=== PATIENT | male | born 1965 | race Caucasian/White ===

== ENCOUNTER 2017-01-13 12:46 | Outpatient (CLI) | payer MEDICAID, OTHER | END 2017-01-13 23:59 | DX: E78.5 Hyperlipidemia, unspecified (principal); Z12.5 Encounter for screening for malignant neoplasm of prostate ==

== ENCOUNTER 2017-08-11 08:42 | Day surgery (SDC) | payer OTHER ==
[2017-08-11] MEDS ORDERED: LACTATED RINGERS 1,000 ML IV ONE (09:30)
[2017-08-11] MEDS ORDERED: MIDAZOLAM 2 MG/2 ML VIAL IVP ONE (10:55)
[2017-08-11] MEDS ORDERED: fentaNYL 100 MCG/2 ML VIAL IVP ONE (10:55)
[2017-08-11 12:01] VITALS: BP 132/77
== END 2017-08-11 08:43 | disposition home or self-care (01) ==
LOC: SDS 08:42
PROVIDERS: ATTEND Surgery
PROC: 0DBE8ZX Excision of Large Intestine, Via Natural or Artificial Opening Endoscopic, Diagnostic (ICD-10-PCS; principal; 2017-08-11 10:00)
DX: Z12.11 Encounter for screening for malignant neoplasm of colon (principal); D12.0 Benign neoplasm of cecum; D12.3 Benign neoplasm of transverse colon; I10 Essential (primary) hypertension; J45.909 Unspecified asthma, uncomplicated
CPT/HCPCS: 45380; J7120; 88305

== ENCOUNTER 2018-08-03 09:10 | Outpatient (CLI) | payer OTHER ==
[2018-08-03 13:13] LABS: BASOPHILS # (AUTO) 0.1 10^3/uL (0.0-0.1); BASOPHILS % (AUTO) 0.9 %; EOSINOPHILS # (AUTO) 0.1 10^3/uL (0.0-0.7); EOSINOPHILS % (AUTO) 1.9 %; LYMPHOCYTES # (AUTO) 1.1 10^3/uL (1.5-3.5); LYMPHOCYTES % (AUTO) 17.4 %; MEAN CORPUSCULAR HEMOGLOBIN 29.9 pg (27.0-31.0); MEAN CORPUSCULAR VOLUME 85.4 fL (80.0-94.0); MONOCYTES # (AUTO) 0.8 10^3/uL (0.0-1.0); MONOCYTES % (AUTO) 12.5 %; NEUTROPHILS # (AUTO) 4.3 10^3/uL (1.5-6.6); NEUTROPHILS % (AUTO) 67.3 %; PLT - PLATELET COUNT 215 10^3/uL (130-450); RED BLOOD COUNT 4.69 10^6/uL (4.70-6.10); RED CELL DISTRIBUTION WIDTH 13.9 % (12.0-15.0); WHITE BLOOD COUNT 6.4 x10^3/uL (4.8-10.8)
[2018-08-03 13:40] LABS: ALBUMIN 4.3 g/dL (3.2-5.5); ALBUMIN/GLOBULIN RATIO 1.5 (1.0-2.2); ALKALINE PHOSPHATASE 67 IU/L (42-121); ALT ALANINE AMINOTRANSFERASE 41 IU/L (10-60); AST ASPARTATE AMINOTRANSFERASE 25 IU/L (10-42); BILIRUBIN,TOTAL 0.9 mg/dL (0.2-1.0); BUN - BLOOD UREA NITROGEN 10 mg/dL (6-20); CALCIUM 9.5 mg/dL (8.5-10.3); CARBON DIOXIDE - CO2 26 mmol/L (21-32); CHLORIDE 104 mmol/L (101-111); CHOL/HDL RATIO 4.3 (<5.0); CHOLESTEROL 160 mg/dL; CREATININE 0.9 mg/dL (0.6-1.2); GFR - MDRD 88 (>89); GLUCOSE 104 mg/dL (70-100); HDL CHOLESTEROL 37 mg/dL; LDL CHOLESTEROL,CALCULATED 100 mg/dL; LDL/HDL RATIO 2.7 (<3.6); SODIUM 136 mmol/L (135-145); TOTAL PROTEIN 7.1 g/dL (6.7-8.2); VLDL CHOLESTEROL 23 mg/dL
== END 2018-08-03 23:59 ==
LOC: LAB.WCP 09:10
PROVIDERS: ATTEND Family Medicine
DX: N20.0 Calculus of kidney (principal); E78.5 Hyperlipidemia, unspecified; Z12.5 Encounter for screening for malignant neoplasm of prostate
CPT/HCPCS: 36415; 80053; 80061; 83721; 84153; 85025

== ENCOUNTER 2020-03-05 08:00 | Outpatient (CLI) | payer OTHER ==
[2020-03-05 12:03] LABS: BASOPHILS # (AUTO) 0.1 10^3/uL (0.0-0.1); BASOPHILS % (AUTO) 0.8 %; EOSINOPHILS # (AUTO) 0.2 10^3/uL (0.0-0.7); EOSINOPHILS % (AUTO) 2.5 %; LYMPHOCYTES # (AUTO) 1.1 10^3/uL (1.5-3.5); MEAN CORPUSCULAR HEMOGLOBIN 30.6 pg (27.0-31.0); MEAN CORPUSCULAR HGB CONC 33.8 g/dL (32.0-36.0); MEAN CORPUSCULAR VOLUME 90.4 fL (80.0-94.0); MEAN PLATELET VOLUME 12.2 fL (7.4-11.4); MONOCYTES # (AUTO) 0.7 10^3/uL (0.0-1.0); MONOCYTES % (AUTO) 11.9 %; NEUTROPHILS % (AUTO) 66.5 %; PLT - PLATELET COUNT 202 10^3/uL (130-450); RED BLOOD COUNT 4.58 10^6/uL (4.70-6.10); RED CELL DISTRIBUTION WIDTH 12.9 % (12.0-15.0)
[2020-03-05 12:34] LABS: ALBUMIN 4.2 g/dL (3.2-5.5); ALBUMIN/GLOBULIN RATIO 1.4 (1.0-2.2); ALKALINE PHOSPHATASE 59 IU/L (42-121); ALT ALANINE AMINOTRANSFERASE 37 IU/L (10-60); AST ASPARTATE AMINOTRANSFERASE 25 IU/L (10-42); BILIRUBIN,TOTAL 0.6 mg/dL (0.2-1.0); BUN - BLOOD UREA NITROGEN 13 mg/dL (6-20); CALCIUM 9.3 mg/dL (8.5-10.3); CARBON DIOXIDE - CO2 28 mmol/L (21-32); CHLORIDE 103 mmol/L (101-111); CHOL/HDL RATIO 4.7 (<5.0); CHOLESTEROL 205 mg/dL; CREATININE 0.9 mg/dL (0.6-1.2); GLUCOSE 99 mg/dL (70-100); HDL CHOLESTEROL 44 mg/dL; LDL CHOLESTEROL,CALCULATED 144 mg/dL; LDL/HDL RATIO 3.3 (<3.6); SODIUM 139 mmol/L (135-145); TOTAL PROTEIN 7.2 g/dL (6.7-8.2); VLDL CHOLESTEROL 17 mg/dL
== END 2020-03-05 23:59 | disposition home or self-care (01) ==
LOC: LAB.WCP 08:00
PROVIDERS: ATTEND Family Medicine
DX: I10 Essential (primary) hypertension (principal); E78.5 Hyperlipidemia, unspecified; Z12.5 Encounter for screening for malignant neoplasm of prostate
CPT/HCPCS: 36415; 80053; 80061; 83721; 84153; 84443; 85025

== ENCOUNTER 2020-06-04 07:21 | Outpatient (CLI) | payer OTHER ==
--- NOTE | 2020-06-04 16:24 | XRAY Report ---
PROCEDURE: Shoulder 3 View RT INDICATIONS: RIGHT SHOULDER PAIN TECHNIQUE: 3 views of the shoulder were acquired. COMPARISON: None. FINDINGS: Bones: No fractures or dislocations. No suspicious bony lesions. Visualized ribs appear intact. Mi ld high riding appearance of the humeral head. Moderate to severe acromioclavicular degenerative narr owing. Soft tissues: No suspicious soft tissue calcifications. IMPRESSION: 1. Mild high riding appearance of the humeral head suggests of rotator cuff pathology. 2. Moderate severe acromioclavicular degenerative narrowing. Reviewed by: Swetha Handley MD on 06/04/2020 4:23 PM PDT Approved by: Swetha Handley MD on 06/04/2020 4:23 PM PDT Station ID: [id number]
== END 2020-06-04 23:59 | disposition home or self-care (01) ==
LOC: DI.WCP 07:21
PROVIDERS: ATTEND Orthopaedic Surgery
DX: R93.6 Abnormal findings on diagnostic imaging of limbs (principal); M19.011 Primary osteoarthritis, right shoulder

== ENCOUNTER 2022-02-03 09:35 | Outpatient (CLI) | payer OTHER ==
[2022-02-03 13:12] LABS: BASOPHILS # (AUTO) 0.1 10^3/uL (0.0-0.1); BASOPHILS % (AUTO) 0.8 %; EOSINOPHILS # (AUTO) 0.2 10^3/uL (0.0-0.7); EOSINOPHILS % (AUTO) 2.9 %; HCT - HEMATOCRIT 41.8 % (42.0-52.0); HGB - HEMOGLOBIN 14.3 g/dL (14.0-18.0); LYMPHOCYTES # (AUTO) 1.2 10^3/uL (1.5-3.5); LYMPHOCYTES % (AUTO) 18.4 %; MEAN CORPUSCULAR HEMOGLOBIN 30.1 pg (27.0-31.0); MEAN CORPUSCULAR HGB CONC 34.2 g/dL (32.0-36.0); MEAN PLATELET VOLUME 12.6 fL (7.4-11.4); MONOCYTES # (AUTO) 0.9 10^3/uL (0.0-1.0); NEUTROPHILS # (AUTO) 4.3 10^3/uL (1.5-6.6); NEUTROPHILS % (AUTO) 64.6 %; PLT - PLATELET COUNT 230 10^3/uL (130-450); RED BLOOD COUNT 4.75 10^6/uL (4.70-6.10); RED CELL DISTRIBUTION WIDTH 12.5 % (12.0-15.0); WHITE BLOOD COUNT 6.6 x10^3/uL (4.8-10.8)
[2022-02-03 13:40] LABS: ALBUMIN 4.5 g/dL (3.2-5.5); ALBUMIN/GLOBULIN RATIO 1.5 (1.0-2.2); ALKALINE PHOSPHATASE 57 IU/L (42-121); ALT ALANINE AMINOTRANSFERASE 34 IU/L (10-60); AST ASPARTATE AMINOTRANSFERASE 27 IU/L (10-42); BILIRUBIN,TOTAL 0.5 mg/dL (0.2-1.0); BUN - BLOOD UREA NITROGEN 16 mg/dL (6-20); CALCIUM 9.7 mg/dL (8.5-10.3); CARBON DIOXIDE - CO2 27 mmol/L (21-32); CHLORIDE 103 mmol/L (101-111); CHOL/HDL RATIO 5.1 (<5.0); CHOLESTEROL 202 mg/dL; CREATININE 0.9 mg/dL (0.6-1.2); GFR - MDRD 87 (>89); GLUCOSE 95 mg/dL (70-100); HDL CHOLESTEROL 40 mg/dL; LDL CHOLESTEROL,CALCULATED 124 mg/dL; LDL/HDL RATIO 3.1 (<3.6); POTASSIUM 4.9 mmol/L (3.5-5.0); SODIUM 140 mmol/L (135-145); TOTAL PROTEIN 7.5 g/dL (6.7-8.2); TRIGLYCERIDES 192 mg/dL; VLDL CHOLESTEROL 38 mg/dL
[2022-02-03 13:48] LABS: THYROID STIMULATING HORMONE 4.94 uIU/mL (0.34-5.60)
[2022-02-03 14:29] LABS: ESTIMATED AVERAGE GLUCOSE 120 mg/dL (70-100); HEMOGLOBIN A1c% 5.8 % (4.27-6.07)
== END 2022-02-03 09:36 | disposition home or self-care (01) ==
LOC: LAB.N 09:35
PROVIDERS: ATTEND Nurse Practitioner Family
DX: I10 Essential (primary) hypertension (principal); E78.5 Hyperlipidemia, unspecified; N52.9 Male erectile dysfunction, unspecified
CPT/HCPCS: 36415; 80053; 80061; 83036; 83721; 84153; 84443; 85025

== ENCOUNTER 2022-06-01 07:17 | Outpatient (CLI) | payer OTHER ==
[2022-06-01 12:13] LABS: ALBUMIN 4.6 g/dL (3.2-5.5); ALBUMIN/GLOBULIN RATIO 1.6 (1.0-2.2); ALKALINE PHOSPHATASE 56 IU/L (42-121); ALT ALANINE AMINOTRANSFERASE 35 IU/L (10-60); AST ASPARTATE AMINOTRANSFERASE 25 IU/L (10-42); BILIRUBIN,TOTAL 0.4 mg/dL (0.2-1.0); BUN - BLOOD UREA NITROGEN 20 mg/dL (6-20); CALCIUM 9.6 mg/dL (8.5-10.3); CARBON DIOXIDE - CO2 27 mmol/L (21-32); CHLORIDE 104 mmol/L (101-111); CHOL/HDL RATIO 3.5 (<5.0); CHOLESTEROL 145 mg/dL; CREATININE 0.8 mg/dL (0.6-1.2); GFR - MDRD 100 (>89); GLUCOSE 112 mg/dL (70-100); HDL CHOLESTEROL 41 mg/dL; LDL CHOLESTEROL,CALCULATED 85 mg/dL; LDL/HDL RATIO 2.1 (<3.6); POTASSIUM 4.4 mmol/L (3.5-5.0); SODIUM 137 mmol/L (135-145); TOTAL PROTEIN 7.4 g/dL (6.7-8.2); TRIGLYCERIDES 97 mg/dL; VLDL CHOLESTEROL 19 mg/dL
== END 2022-06-01 07:18 | disposition home or self-care (01) ==
LOC: LAB.N 07:17
PROVIDERS: ATTEND Nurse Practitioner Family
DX: I10 Essential (primary) hypertension (principal); E78.5 Hyperlipidemia, unspecified
CPT/HCPCS: 36415; 80053; 80061; 83721

== ENCOUNTER 2022-10-21 07:00 | Day surgery (SDC) | payer OTHER ==
[2022-10-21] MEDS ORDERED: PROPOFOL 500 MG/50 ML 500 MG/50 ML VIAL ONE (07:06)
--- NOTE | 2022-10-21 07:12 | ANESTHESIA ---
Pre-Anesthesia VS, & Labs - Diagnosis screening - Procedure colonoscopy Height: 5 ft 10 in Home Medications and Allergies Home Medications: Ambulatory Orders Atorvastatin [Lipitor] 5 mg PO DAILY 10/20/22 Losartan [Cozaar] 25 mg PO DAILY 07/22/16 Albuterol Sulf [Ventolin Hfa Inhaler] 2 puffs ORAL PRN PRN MDD 8 puffs 08/11/17 Sildenafil Citrate [Sildenafil] 20 mg ORAL PRN PRN MDD 20 mg 08/11/17 atenoloL [Atenolol] 50 mg PO DAILY MDD 50 mg 08/11/17 Atorvastatin [Lipitor] 5 mg PO DAILY 10/20/22 Allergies/Adverse Reactions: Allergies Allergy/AdvReac Type Severity Reaction Status Date / Time No Known Drug Allergies Allergy Verified 10/20/22 13:06 Anes History & Medical History - Anesthetic History Anesthesia Complications: reports: No previous complications - Medical History Cardiovascular: reports: Hypertension, High cholesterol Pulmonary: reports: Asthma Gastrointestinal: reports: None Urinary: reports: None Musculoskeletal: reports: None Endocrine/Autoimmune: reports: None Skin: reports: None Smoking Status: Never smoker - Surgical History General: reports: Colonoscopy Exam General: Alert, Oriented x3 Dental: WNL Mallampati classification: II Thyromental Distance: greater than 6 cm Respiratory: Lungs clear Cardiovascular: Regular rate Plan Anesthesia Type: Total IV Consent for Procedure(s) Verified and Reviewed: Yes Code Status: Attempt Resuscitation ASA classification: 2-Mild systemic disease Is this case an emergency?: No
[2022-10-21] MEDS ORDERED: LACTATED RINGERS 1,000 ML IV ONE (07:26)
--- NOTE | 2022-10-21 07:53 | HISTORY & PHYSICAL EXAMINATION ---
Chief Complaint - Chief Complaint Chief Complaint: here for surveillance colonoscopy History of Present Illness - History Obtained From Records Reviewed: yes History obtained from: pt Exam Limitations: none - History of Present Illness HPI Comment/Other: colonoscopy 08/2017 2 SSA. no gi problems History - Past Medical History Cardiovascular: reports: Hypertension, High cholesterol Respiratory: reports: Asthma Endocrine/Autoimmune: reports: None GI: reports: None : reports: None HEENT: reports: None Psych: reports: None Musculoskeletal: reports: None Derm: reports: None MRSA Hx?: No - Past Surgical History General: reports: Colonoscopy Meds/Allgy - Home Medications Home Medications: Ambulatory Orders Medication Instructions Recorded Confirmed Losartan [Cozaar] 25 mg PO DAILY 07/22/16 10/20/22 Albuterol Sulf [Ventolin Hfa 2 puffs ORAL PRN PRN MDD 8 puffs 08/11/17 10/20/22 Inhaler] Sildenafil Citrate [Sildenafil] 20 mg ORAL PRN PRN MDD 20 mg 08/11/17 10/20/22 atenoloL [Atenolol] 50 mg PO DAILY MDD 50 mg 08/11/17 10/20/22 Atorvastatin [Lipitor] 5 mg PO DAILY 10/20/22 10/20/22 - Allergies Allergies/Adverse Reactions: Allergies Allergy/AdvReac Type Severity Reaction Status Date / Time lisinopril AdvReac Respiratory Verified 10/21/22 07:20 Review of Systems - Other Findings Other Findings: 10 pt ros as above otherwise unremarkable Exam - Vital Signs Reviewed Vital Signs: Yes Vital Signs: Vital Signs x48h Temp Pulse Resp BP Pulse Ox O2 Flow Rate 10/21/22 07:05 35.9 C L 86 16 142/92 H 98 0 - Physical Exam General Appearance: positive: Alert Eyes Bilateral: positive: PERRL, EOMI ENT: positive: No signs of dehydration Neck: positive: No JVD, Trachea midline Respiratory: positive: No respiratory distress, Breath sounds nml Cardiovascular: positive: Regular rate & rhythm Abdomen: positive: Non-tender, No distention Neurologic/Psychiatric: positive: Oriented x3 Conclusion/Plan - Problem List (1) History of adenomatous polyp of colon Conclusion/Plan: plan colonoscopy. parq held and consent obtained
[2022-10-21] MEDS ORDERED: LACTATED RINGERS 600 ML IV ONE (08:37)
[2022-10-21] MEDS ORDERED: SIMETHICONE 40 MG/0.6 ML 30 ML BOTTLE PO ONE (08:38)
--- NOTE | 2022-10-21 09:50 | ANESTHESIA POST OP EVALUATION ---
Anesthesia Post Eval - Post Anesthesia Eval Vitals: Last Vital Signs Temp 36.1 C L 10/21/22 09:00 Pulse 82 10/21/22 09:00 Resp 16 10/21/22 09:00 BP 113/85 H 10/21/22 09:00 Pulse Ox 98 10/21/22 09:00 O2 Flow Rate 0 10/21/22 07:05 CV Function Including HR & BP: Stable Pain Control: Satisfactory Nausea & Vomiting: Negative Mental Status: Baseline Respiratory Status: Airway Patent Hydration Status: Satisfactory Anesthesia Complications: None
[2022-10-21 09:56] VITALS: BP 122/85
== END 2022-10-21 07:01 | disposition home or self-care (01) ==
LOC: SDS 07:00
PROVIDERS: ATTEND Surgery
PROC: 0DBH8ZZ Excision of Cecum, Via Natural or Artificial Opening Endoscopic (ICD-10-PCS; 2022-10-21)
PROC: 0DBK8ZX Excision of Ascending Colon, Via Natural or Artificial Opening Endoscopic, Diagnostic (ICD-10-PCS; principal; 2022-10-21 08:45)
DX: Z12.11 Encounter for screening for malignant neoplasm of colon (principal); D12.0 Benign neoplasm of cecum; J45.20 Mild intermittent asthma, uncomplicated; I10 Essential (primary) hypertension
CPT/HCPCS: 45380; 45385; A9270; J7120

== ENCOUNTER 2022-11-30 11:13 | Day surgery (SDC) | payer OTHER ==
[2022-11-30] MEDS ORDERED: BUPIVACAINE 0.5% PF 30 ML VIAL ONE (12:02)
[2022-11-30] MEDS ORDERED: BUPIVACAINE 0.25% PF 30 ML VIAL ONE (12:02)
[2022-11-30] MEDS ORDERED: LACTATED RINGERS 1,000 ML IV ONE ×2 (12:06→13:54)
[2022-11-30] MEDS ORDERED: ACETAMINOPHEN 500 MG TABLET PO ONE (12:12)
[2022-11-30] MEDS ORDERED: LIDOCAINE-MPF 1% 30 ML VIAL ONE (12:45)
--- NOTE | 2022-11-30 12:51 | ANESTHESIA ---
Pre-Anesthesia VS, & Labs - Diagnosis R 4th finger, trigger finger - Procedure R 4th finger, trigger finger release Vital Signs: Temp Pulse Resp BP Pulse Ox O2 Flow Rate 36.1 C L 75 16 1236/87 H 98 11/30/22 12:30 11/30/22 12:30 11/30/22 12:30 11/30/22 12:30 11/30/22 12:30 Height: 6 ft Weight (kg): 1074.7 kg Body Mass Index: 321.3 BMI Classification: Morbidly Obese - NPO >8 hours - Lab Results Lab results reviewed: Yes Home Medications and Allergies Losartan [Cozaar] 25 mg PO DAILY 07/22/16 Albuterol Sulf [Ventolin Hfa Inhaler] 2 puffs ORAL PRN PRN MDD 8 puffs 08/11/17 Sildenafil Citrate [Sildenafil] 20 mg ORAL PRN PRN MDD 20 mg 08/11/17 atenoloL [Atenolol] 50 mg PO DAILY MDD 50 mg 08/11/17 Atorvastatin [Lipitor] 5 mg PO DAILY 10/20/22 Allergies/Adverse Reactions: Allergies Allergy/AdvReac Type Severity Reaction Status Date / Time lisinopril AdvReac coughing Verified 11/29/22 11:40 NARCOTIC AdvReac Unknown Uncoded 11/29/22 11:43 Anes History & Medical History - Anesthetic History Anesthesia Complications: reports: No previous complications Family history of Anesthesia Complications: Denies Family history of Malignant Hyperthermia: Denies - Medical History Cardiovascular: reports: Hypertension, High cholesterol Pulmonary: reports: Asthma Gastrointestinal: reports: None Urinary: reports: None Musculoskeletal: reports: None Endocrine/Autoimmune: reports: None Skin: reports: None Smoking Status: Never smoker - Surgical History General: reports: Colonoscopy Exam General: Alert, Oriented x3, Cooperative Mouth Openin Fingerbreadth Neck Mobility: Normal Mallampati classification: II Thyromental Distance: 4-6 cm Respiratory: Lungs clear Cardiovascular: Regular rate Neurological: Normal speech Mental/Cognitive Status: Alert/Oriented X3, Normal for patient Cognitive Status: Within normal limits Plan Anesthesia Type: MAC Consent for Procedure(s) Verified and Reviewed: Yes Code Status: Attempt Resuscitation ASA classification: 2-Mild systemic disease Is this case an emergency?: No
[2022-11-30] MEDS ORDERED: LIDOCAINE-PF 2% 10 ML AMP SUBQ ONE (13:01)
[2022-11-30] MEDS ORDERED: fentaNYL 100 MCG/2 ML VIAL ONE (13:01)
[2022-11-30] MEDS ORDERED: MIDAZOLAM 2 MG/2 ML VIAL ONE (13:01)
[2022-11-30] MEDS ORDERED: BUPIVACAINE 0.25% PF 30 ML VIAL SUBQ ONE ×2 (13:25→13:39)
[2022-11-30] MEDS ORDERED: LIDOCAINE 1% 50 ML MDV SUBQ ONE ×2 (13:25→13:39)
--- NOTE | 2022-11-30 13:48 | OPERATIVE REPORT ---
Operative Report - General Procedure Date: 11/30/22 Planned Procedure: Open flexor tendon sheath release right fourth finger Pre-Op Diagnosis: Stenosing tenosynovitis flexor tendon right fourth finger Procedure Performed: Open flexor tendon sheath release right fourth finger Post Op Diagnosis: Same as preoperative diagnosis - Procedure Note Primary Surgeon: William Gunn MD Secondary Surgeon: Desiree Carpio PAC Anesthesia Provider: Shashank Woods CRNA Anesthesia Technique: Local Estimated Blood Loss (mL): 2 Indications: This is a 57-year-old gentleman with chronic and recurring triggering of the right fourth finger. The triggering episodes are painful and have not responded to nonoperative treatment including cortisone to the flexor tendon sheath. He has full motion of his right fourth finger.Informed consent obtained for trigger finger repair doing open flexor tendon sheath release right fourth finger Findings: The flexor tendon sheath was intact and tight to the right fourth finger. There is no abnormality to the flexor tendon. Complications: None - Other Other Information/Narrative: The patient was brought to the operating room. He was placed in the supine position. The right arm was placed over a arm extension table. A pneumatic tourniquet had been applied to the proximal right arm. The tourniquet was not utilized during surgery. A timeout procedure was performed by the entire operating room team and all were in agreement. Using 6 cc, 50-50 mixture of 1% Xylocaine and quarter percent Marcaine without epinephrine. Local infiltration of the operative site was performed in the area of the distal palmar crease, over the intended incision. After satisfactory anesthesia was obtained, the skin was incised, spreading bismark hnique exposing flexor tendon sheath. Right angle retractors were placed on each side of the flexor tendon and a third retractor more proximally to expose the entire flexor tendon sheath at the operative site. A [place] blade was used to incise the flexor tendon sheath and the release was completed with straight Metzenbaum scissors. The flexor tendon was identified and was intact. The patient could actively make a full fist and fully extend his hand without any sign of triggering to the right fourth finger. The incision was closed with 3-0 Monocryl subcuticular suture, dry sterile dressing with mild compression. He tolerated the procedure well. A physician retail loan originator assistant was medically necessary to help with prepping and draping, positioning, protection of vital structures, assistance during the procedure including wound closure, dressing and/or splinting.
[2022-11-30] MEDS ORDERED: ONDANSETRON ODT 4 MG TABLET TL PRN (13:57)
[2022-11-30] MEDS ORDERED: CELECOXIB 100 MG CAPSULE PO PRN (13:57)
[2022-11-30] MEDS ORDERED: ACETAMINOPHEN 500 MG TABLET PO PRN (13:57)
--- NOTE | 2022-11-30 13:58 | ANESTHESIA POST OP EVALUATION ---
Anesthesia Post Eval - Post Anesthesia Eval Vitals: Last Vital Signs Temp 36.9 C 11/30/22 13:55 Pulse 69 11/30/22 13:55 Resp 16 11/30/22 13:55 BP 131/86 H 11/30/22 13:55 Pulse Ox 98 11/30/22 13:55 O2 Flow Rate CV Function Including HR & BP: Stable Pain Control: Satisfactory Nausea & Vomiting: Negative Mental Status: Baseline Respiratory Status: Airway Patent Hydration Status: Satisfactory Anesthesia Complications: None
[2022-11-30 14:27] VITALS: BP 114/94
== END 2022-11-30 11:14 | disposition home or self-care (01) ==
LOC: SDS 11:13
PROVIDERS: ATTEND Orthopaedic Surgery
DX: M65.341 Trigger finger, right ring finger (principal); E66.9 Obesity, unspecified
CPT/HCPCS: 26055; A9270; J7120

== ENCOUNTER 2023-03-22 11:30 | Outpatient (CLI) | payer OTHER ==
--- NOTE | 2023-03-23 11:44 | XRAY Report ---
PROCEDURE: Ankle 3 View RT INDICATIONS: ANKLE AND HEEL PAIN RIGHT TECHNIQUE: 3 views of the ankle were acquired. COMPARISON: None. FINDINGS: Bones: No fractures or dislocations. Ankle mortise is normally aligned. No suspicious bony lesions . Mild degenerative joint disease at the talonavicular joint. Soft tissues: No tibiotalar joint effusion. The distal Achilles tendon appears thickened, suggestin g Achilles tendinitis. IMPRESSION: 1. No acute bony abnormality. 2. Mild degenerative joint disease. 3. Suspect Achilles tendinitis. If clinically correlation. Reviewed by: Ellyn Martinez MD on 03/23/2023 11:43 AM PDT Approved by: Ellyn Martinez MD on 03/23/2023 11:43 AM PDT Station ID: [id number]
== END 2023-03-22 11:45 | disposition home or self-care (01) ==
LOC: DI.N 11:30
PROVIDERS: ATTEND Registered Nurse
DX: M19.071 Primary osteoarthritis, right ankle and foot (principal)

== ENCOUNTER 2023-04-06 08:00 | Outpatient (CLI) | payer OTHER ==
--- NOTE | 2023-04-06 15:33 | XRAY Report ---
PROCEDURE: Ankle 3 View RT INDICATIONS: RIGHT ANKLE INJURY TECHNIQUE: 3 views of the ankle were acquired. COMPARISON: X-ray ankle 03/22/2023 FINDINGS: Bones: No fractures or dislocations. Ankle mortise is normally aligned. No suspicious bony lesions . Soft tissues: No tibiotalar joint effusion. Achilles tendon continues to demonstrate mildly thicken ed appearance. IMPRESSION: No visualized acute fracture or dislocation. However, occult injury cannot be excluded. Recommend jessa rt interval imaging follow-up in 7-10 days as clinically indicated for additional evaluation. Persistent mildly thickened appearance of the Achilles tendon. As previously noted tendinitis cannot be excluded. Reviewed by: Swetha Handley MD on 04/06/2023 3:31 PM PDT Approved by: Swetha Handley MD on 04/06/2023 3:31 PM PDT Station ID: [id number]
== END 2023-04-06 23:59 | disposition home or self-care (01) ==
LOC: DI.WOS 08:00
PROVIDERS: ATTEND Orthopaedic Surgery Sports Medicine
DX: M79.671 Pain in right foot (principal); M25.571 Pain in right ankle and joints of right foot

== ENCOUNTER 2024-02-12 07:21 | Outpatient (CLI) | payer OTHER ==
[2024-02-12 12:26] LABS: BASOPHILS # (AUTO) 0.1 10^3/uL (0.0-0.1); BASOPHILS % (AUTO) 1.1 %; EOSINOPHILS # (AUTO) 0.2 10^3/uL (0.0-0.7); EOSINOPHILS % (AUTO) 3.3 %; HCT - HEMATOCRIT 40.3 % (42.0-52.0); HGB - HEMOGLOBIN 13.5 g/dL (14.0-18.0); LYMPHOCYTES # (AUTO) 0.9 10^3/uL (1.5-3.5); LYMPHOCYTES % (AUTO) 16.1 %; MEAN CORPUSCULAR HEMOGLOBIN 29.8 pg (27.0-31.0); MEAN CORPUSCULAR HGB CONC 33.5 g/dL (32.0-36.0); MONOCYTES # (AUTO) 0.8 10^3/uL (0.0-1.0); MONOCYTES % (AUTO) 14.3 %; NEUTROPHILS # (AUTO) 3.5 10^3/uL (1.5-6.6); NEUTROPHILS % (AUTO) 64.8 %; PLT - PLATELET COUNT 207 10^3/uL (130-450); RED BLOOD COUNT 4.53 10^6/uL (4.70-6.10); RED CELL DISTRIBUTION WIDTH 12.9 % (12.0-15.0); WHITE BLOOD COUNT 5.5 x10^3/uL (4.8-10.8)
[2024-02-12 12:39] LABS: ALBUMIN 4.3 g/dL (3.2-5.5); ALBUMIN/GLOBULIN RATIO 1.6 (1.0-2.2); ALKALINE PHOSPHATASE 54 IU/L (42-121); ALT ALANINE AMINOTRANSFERASE 30 IU/L (10-60); AST ASPARTATE AMINOTRANSFERASE 23 IU/L (10-42); BILIRUBIN,TOTAL 0.6 mg/dL (0.2-1.0); BUN - BLOOD UREA NITROGEN 18 mg/dL (6-20); CALCIUM 9.9 mg/dL (8.5-10.3); CARBON DIOXIDE - CO2 29 mmol/L (21-32); CHLORIDE 106 mmol/L (101-111); CHOL/HDL RATIO 3.1 (<5.0); CHOLESTEROL 124 mg/dL; CREATININE 0.9 mg/dL (0.6-1.3); GFR - MDRD 86 (>89); GLUCOSE 113 mg/dL (74-104); HDL CHOLESTEROL 40 mg/dL; LDL CHOLESTEROL,CALCULATED 68 mg/dL; LDL/HDL RATIO 1.7 (<3.6); POTASSIUM 4.3 mmol/L (3.5-4.5); SODIUM 140 mmol/L (135-145); TRIGLYCERIDES 79 mg/dL (48-352); VLDL CHOLESTEROL 16 mg/dL
[2024-02-12 12:54] LABS: THYROID STIMULATING HORMONE 2.07 uIU/mL (0.34-5.60)
[2024-02-12 13:23] LABS: ESTIMATED AVERAGE GLUCOSE 137 mg/dL (70-100); HEMOGLOBIN A1c% 6.4 % (4.27-6.07)
== END 2024-02-12 07:22 | disposition home or self-care (01) ==
LOC: LAB.N 07:21
PROVIDERS: ATTEND Nurse Practitioner Family
DX: E78.5 Hyperlipidemia, unspecified (principal); E66.9 Obesity, unspecified; I10 Essential (primary) hypertension; Z12.5 Encounter for screening for malignant neoplasm of prostate
CPT/HCPCS: 36415; 80053; 80061; 83036; 83721; 84153; 84443; 85025